=== PATIENT | male | born 1950 | race Caucasian/White ===

== ENCOUNTER 2021-06-24 11:16 | Outpatient (CLI) | payer MEDICARE, SELFPAY ==
--- NOTE | ~2021-06-24 | US_ITS ---
EXAMINATION: US aorta [facility] DATE: 06/24/2021 11:52 INDICATION: Personal history of nicotine dependence, prior smoker, hypercholesterolemia TECHNIQUE: Grayscale, color Doppler, and pulsed Doppler images of the aorta and common iliac arteries were obtained. COMPARISON: None. FINDINGS: Maximum vascular dimensions are as follows: Bowel gas obscures visualization of the proximal aorta. Mid aorta: 1.9 cm Distal aorta: 1.3 cm Right common iliac artery: 1.2 cm Left common iliac artery: 1.1 cm There is no evidence of abdominal aortic aneurysm. IMPRESSION: 1. No evidence of abdominal aortic aneurysm, proximal aorta obscured by bowel gas. Reviewed, dictated and finalized at location A. IMPRESSION: 1. No evidence of abdominal aortic aneurysm, proximal aorta obscured by bowel g as.
== END 2021-06-24 11:17 | disposition home or self-care (01) ==
LOC: ANHIMG 11:19
PROVIDERS: PCP Family Medicine; Visit Provider Physician Assistant
DX: Z87.891 Personal history of nicotine dependence (principal)
CPT/HCPCS: 76706

== ENCOUNTER 2022-05-04 08:04 | Outpatient (CLI) | payer MEDICARE, SELFPAY | END 2022-05-04 08:05 | disposition home or self-care (01) | LOC: ANHAUDASC 08:05 | PROVIDERS: PCP Family Medicine; Visit Provider Otolaryngology | DX: H91.92 Unspecified hearing loss, left ear (principal) | CPT/HCPCS: 92557; 92567 ==